=== PATIENT | male | born 1990 | race Caucasian/White ===

== ENCOUNTER 2017-02-07 01:40 | Emergency (ER) | payer BC ==
[~2017-02-07] VITALS: Ht 175.3 cm; Wt 90.9 kg
[2017-02-07 01:49] VITALS: BP 134/80; PULSE 75; RESP 18; O2SAT 97
[2017-02-07] MEDS ORDERED: MORPHINE SULFATE 4 MG/ML INJ IV PUSH ONE (02:30)
[2017-02-07] MEDS ORDERED: ONDANSETRON HCL 4 MG/2 ML VIAL IV PUSH ONE (02:30)
[2017-02-07] MEDS ORDERED: SODIUM CHLOR 0.9% 1000 ML INJ 1,000 ML IV ONE (02:30)
--- NOTE | 2017-02-07 02:31 | PD ---
HPI Chief Complaint: Musculoskeletal Complaint Time Seen by Provider: 01:50 Travel History International Travel<30 days: No Contact w/Intl Traveler<30days: No Traveled to known affect area: No History of Present Illness HPI The patient is a 26-year-old male who presents to the [facility] emergency department with a history of tripping over a curb prior to arrival. The patient reports that he tried to catch himself with this extended arms and fell onto his left extended arm feeling a pop in his left shoulder. The patient has deformity of the left shoulder. He reports that he had severe pain. He reports that he has full sensation in his hands. He denies having any weakness in his wrist. He denies having any pain in his elbow. He denies hitting his head or losing consciousness. He denies having any neck pain, numbness or tingling, or weakness in his other extremities. The patient is visiting from out of town for bike week. The patient denies any recent fevers, cough, congestion, neck pain, chest pain, shortness of breath, abdominal pain, vomiting , diarrhea, urinary symptoms, or neurologic symptoms. [facility] Past Medical History Narrative Medical The patient's past medical history is significant for bilateral shoulder injuries in the past status post rehabilitation. He denies having any prior shoulder surgery. He denies having any prior dislocation of his shoulders. Diminished Hearing: No Musculoskeletal: Yes (bilateral shoulder tears) Immunizations Current: Yes Influenza Vaccination: No Past Surgical History Narrative Surgical The patient's past surgical history is significant for benign tumors being removed from his neck. Surgical History: No Previous Surgery Social History Alcohol Use: Yes (2 beers this evening, otherwise occasionally) Tobacco Use: Yes (1 ppd) Substance Use: No Allergies-Medications (Allergen,Severity, Reaction): Coded Allergies: No Known Allergies (Unverified , 02/07/17) Reported Meds & Prescriptions Reported Meds & Active Scripts Active No Active Prescriptions or Reported Medications Review of Systems Except as stated in HPI: all other systems reviewed are Neg General / Constitutional: No: Fever Eyes: No: Visual changes HENT: No: Headaches Cardiovascular: No: Chest Pain or Discomfort Respiratory: No: Shortness of Breath Gastrointestinal: No: Abdominal Pain Genitourinary: No: Dysuria Musculoskeletal: Positive: Myalgias, Arthralgias, Limited ROM, Pain Skin: No Rash Neurologic: No: Weakness Psychiatric: No: Depression Endocrine: No: Polydipsia Hematologic/Lymphatic: No: Easy Bruising Physical Exam Narrative General: The patient is a well-developed well-nourished male in no acute distress, however the patient did receive morphine 10 mg IV prior to arrival by ambulance services. Head and Neck exam: Head is normocephalic atraumatic. Eyes: EOMI, pupils are equal round and reactive to light. Nose: Midline septum with pink mucous membranes Mouth: Dentition unremarkable. Moist mucus membranes. Posterior oropharynx is not erythematous. No tonsillar hypertrophy. Uvula midline. Airway patent. Neck: No palpable lymphadenopathy. No nuchal rigidity. No thyromegaly. Cardiovascular: Regular rate and rhythm without murmurs, gallops, or rubs. Lungs: Clear to auscultation bilaterally. No wheezes, rhonchi, or rales. Abdomen: Soft, without tenderness to palpation in all 4 quadrants of the abdomen. No guarding, rebound, or rigidity. Normal bowel sounds are audible. Extremities: No clubbing, cyanosis, or edema. 2+ pulses in all 4 extremities. On examination of the area of interest, the left shoulder the patient is noted to have loss of fullness in the glenoid fossa. The patient has loss of range of motion with abduction of his shoulder. He is maintaining his shoulder adducted , flexed at the elbow, lying over his abdomen. There is no crepitus. The patient has no pain on palpation of his left elbow. The patient has no pain on palpation of his wrist. The patient has full strength with flexion and extension at the wrist and full strength with abduction of his fingers. He has intact sensation over all finger pads. The patient has less than 3 second capillary refill. Back: No spinous process tenderness to palpation. No costovertebral angle tenderness to palpation. Neurologic Exam: Cranial nerves 2-12 were intact on exam. Strength is 5/5 in all 4 extremities. No sensory deficits noted. Skin Exam: No rash noted. Intact skin that is warm and dry. Data Data Last Documented VS Vital Signs Date Time Temp Pulse Resp B/P Pulse Ox O2 Delivery O2 Flow Rate FiO2 02/07/17 03:05 98 2.00 02/07/17 01:49 75 18 134/80 Room Air Orders Complete Blood Count With Diff (02/07/17 02:18) Basic Metabolic Panel (Bmp) (02/07/17 02:18) Iv Access Insert/Monitor (02/07/17 02:18) Ecg Monitoring (02/07/17 02:18) Oximetry (02/07/17 02:18) Morphine Inj (Morphine Inj) (02/07/17 02:30) Ondansetron Inj (Zofran Inj) (02/07/17 02:30) Sodium Chlor 0.9% 1000 Ml Inj (Ns 1000 M (02/07/17 02:30) Ice/Cold Pack (02/07/17 02:18) Shoulder, Limited(2vws) (02/07/17 02:18) Propofol 200 Mg/20 Ml Inj (Diprivan 200 (02/07/17 03:00) Splint Or Brace Apply/Monitor (02/07/17 03:02) Shoulder, Limited(2vws) (02/07/17 03:14) Labs Laboratory Tests Test 02/07/17 02:30 White Blood Count 12.7 TH/MM3 Red Blood Count 4.74 MIL/MM3 Hemoglobin 15.1 GM/DL Hematocrit 43.5 % Mean Corpuscular Volume 91.6 FL Mean Corpuscular Hemoglobin 31.8 PG Mean Corpuscular Hemoglobin 34.7 % Concent Red Cell Distribution Width 13.1 % Platelet Count 297 TH/MM3 Mean Platelet Volume 8.0 FL Neutrophils (%) (Auto) 52.3 % Lymphocytes (%) (Auto) 33.7 % Monocytes (%) (Auto) 7.8 % Eosinophils (%) (Auto) 5.4 % Basophils (%) (Auto) 0.8 % Neutrophils # (Auto) 6.6 TH/MM3 Lymphocytes # (Auto) 4.3 TH/MM3 Monocytes # (Auto) 1.0 TH/MM3 Eosinophils # (Auto) 0.7 TH/MM3 Basophils # (Auto) 0.1 TH/MM3 CBC Comment DIFF FINAL Differential Comment Sodium Level 142 MEQ/L Potassium Level 3.7 MEQ/L Chloride Level 104 MEQ/L Carbon Dioxide Level 28.3 MEQ/L Anion Gap 10 MEQ/L Blood Urea Nitrogen 10 MG/DL Creatinine 1.00 MG/DL Estimat Glomerular Filtration 90 ML/MIN Rate Random Glucose 105 MG/DL Calcium Level 8.1 MG/DL MDM Medical Decision Making Medical Screen Exam Complete: Yes Emergency Medical Condition: Yes Medical Record Reviewed: Yes Interpretation(s) Laboratory Tests Test 02/07/17 02:30 White Blood Count 12.7 TH/MM3 Red Blood Count 4.74 MIL/MM3 Hemoglobin 15.1 GM/DL Hematocrit 43.5 % Mean Corpuscular Volume 91.6 FL Mean Corpuscular Hemoglobin 31.8 PG Mean Corpuscular Hemoglobin 34.7 % Concent Red Cell Distribution Width 13.1 % Platelet Count 297 TH/MM3 Mean Platelet Volume 8.0 FL Neutrophils (%) (Auto) 52.3 % Lymphocytes (%) (Auto) 33.7 % Monocytes (%) (Auto) 7.8 % Eosinophils (%) (Auto) 5.4 % Basophils (%) (Auto) 0.8 % Neutrophils # (Auto) 6.6 TH/MM3 Lymphocytes # (Auto) 4.3 TH/MM3 Monocytes # (Auto) 1.0 TH/MM3 Eosinophils # (Auto) 0.7 TH/MM3 Basophils # (Auto) 0.1 TH/MM3 CBC Comment DIFF FINAL Differential Comment Sodium Level 142 MEQ/L Potassium Level 3.7 MEQ/L Chloride Level 104 MEQ/L Carbon Dioxide Level 28.3 MEQ/L Anion Gap 10 MEQ/L Blood Urea Nitrogen 10 MG/DL Creatinine 1.00 MG/DL Estimat Glomerular Filtration 90 ML/MIN Rate Random Glucose 105 MG/DL Calcium Level 8.1 MG/DL Last Impressions Shoulder X-Ray 02/07/17313 Signed Impressions: Service Date/Time: Tuesday, February 07, 2017 03:42 - CONCLUSION: Alignment within normal limits. Berto Larios MD Shoulder X-Ray 02/07/178 Signed Impressions: Service Date/Time: Tuesday, February 07, 2017 02:36 - CONCLUSION: Anterior inferior humeral head dislocation. Berto Larios MD Differential Diagnosis Left shoulder dislocation, versus left shoulder fracture Narrative Course During the course of the patients emergency department visit, the patients history, examination, and differential diagnosis were reviewed with the patient. The patient had IV access obtained and blood work sent for analysis. The patient was placed on a painter and decorator apprentice with oximetry and blood pressure monitoring. An x-ray of the left shoulder was ordered. The patient was provided morphine 4 mg IV for pain, Zofran 4 mg IV for nausea, normal saline 1 L IV fluid bolus was started. The patients laboratory studies were reviewed and remarkable for a CBC that shows a white count of 12.7, hemoglobin 15.1, platelets 297 with 5.4 eosinophils , BNP is remarkable for calcium 8.1 Radiology studies were reviewed and remarkable for a left shoulder x-ray that shows an anterior inferior humeral head dislocation. Postreduction x-ray reveals anatomic realignment after reduction of the dislocation. No evidence of fracture. The patient was instructed on rest, ice, elevation of the area of discomfort. The patient was instructed to maintain his shoulder and a sling and swath for the next 3 weeks and follow-up with an orthopedic physician for reexamination when he returns back home. The patient is resting comfortably and feels better, is alert and in no distress. The patients results and examination findings were discussed with the patient. The repeat examination is unremarkable and benign. The history, exam, diagnostic testing, and current condition do not suggest any significant pathology to warrant further testing, continued ED treatment, admission, or surgical evaluation at this point. The vital signs have been stable. The patient does not have uncontrollable pain, intractable vomiting, or other significant symptoms. The patient's condition is stable and appropriate for discharge. The patient will pursue further outpatient evaluation with a primary care physician or other designated or consulting physician as indicated in the discharge instructions. The patient expressed understanding and was agreeable with this plan. Diagnosis Primary Impression: Dislocation of left shoulder joint Qualified Code: S43.005A - Dislocation of left shoulder joint, initial encounter Referrals: Orthopedist 1 week Patient Instructions: General Instructions, Shoulder Dislocation (ED) Med/Other Pt SpecificInfo: Prescription(s) given Scripts Ibuprofen 600 Mg Fue486 Mg PO Q8HR PRN (PAIN) #12 TAB Ref 0 Prov:Jessica Hebert MD 02/07/17 Disposition: DISCHARGE HOME Condition: Stable Jessica Hebert MD Feb 07, 2017 02:31
[2017-02-07 02:45] LABS: AUTOMATED NEUTROPHIL # 6.6 TH/MM3 (1.8-7.7); BASOPHIL # 0.1 TH/MM3 (0-0.2); BASOPHIL % 0.8 % (0.0-2.0); EOSINOPHIL # 0.7 TH/MM3 (0-0.4); EOSINOPHIL % 5.4 % (0.0-4.0); HEMATOCRIT 43.5 % (39.0-51.0); HEMO FLAGS DIFF FINAL; LYMPH % 33.7 % (9.0-44.0); LYMPHOCYTE # 4.3 TH/MM3 (1.0-4.8); MEAN CELL VOLUME 91.6 FL (80.0-100.0); MEAN CORPUSCULAR HEMOGLOBIN 31.8 PG (27.0-34.0); MEAN CORPUSCULAR HGB CONC 34.7 % (32.0-36.0); MONO % 7.8 % (0.0-8.0); NEUT % 52.3 % (16.0-70.0); PLATELET COUNT 297 TH/MM3 (150-450); RED BLOOD COUNT 4.74 MIL/MM3 (4.50-5.90); RED CELL DISTRIBUTION WIDTH 13.1 % (11.6-17.2); WHITE BLOOD COUNT 12.7 TH/MM3 (4.0-11.0)
[2017-02-07] MEDS ORDERED: PROPOFOL 200 MG/20 ML AMP IV ONE (03:00)
--- NOTE | 2017-02-07 03:01 | RADRPT ---
EXAM DATE/TIME: 02/07/2017 02:36 [facility] COMPARISON: No previous studies available for comparison. INDICATIONS : Left shoulder pain post trip and fall. MEDICAL HISTORY : None. SURGICAL HISTORY : None. ENCOUNTER: Initial ACUITY: 1 day PAIN SCORE: 10/10 LOCATION: Left upper extremity FINDINGS: 2 views left shoulder. Anterior-inferior dislocation of the humeral head relative to the glenoid. No gross evidence of fracture. CONCLUSION: Anterior inferior humeral head dislocation. Berto Larios MD on February 07, 2017 at 2:59 Board Certified Radiologist. This report was verified electronically.
[2017-02-07 03:05] VITALS: O2SAT 98
[2017-02-07 03:06] LABS: BICARBONATE 28.3 MEQ/L (21.0-32.0); POTASSIUM 3.7 MEQ/L (3.5-5.1)
--- NOTE | 2017-02-07 04:06 | RADRPT ---
EXAM DATE/TIME: 02/07/2017 03:42 [facility] COMPARISON: SHOULDER LEFT LTD (2VWS), February 07, 2017, 2:36. INDICATIONS : Post reduction. MEDICAL HISTORY : None. SURGICAL HISTORY : None. ENCOUNTER: Subsequent ACUITY: 1 day PAIN SCORE: 8/10 LOCATION: Left upper extremity FINDINGS: 2 views left shoulder. Glenohumeral joint alignment within normal limits. No gross evidence of fractu re. CONCLUSION: Alignment within normal limits. Berto Larios MD on February 07, 2017 at 4:05 Board Certified Radiologist. This report was verified electronically.
[2017-02-07] MEDS ORDERED: IBUP-232 PO (04:24)
== END 2017-02-07 05:03 | disposition home or self-care (01) ==
LOC: NEPC 01:40
DX: S43.005A Unspecified dislocation of left shoulder joint, initial encounter (principal); F17.200 Nicotine dependence, unspecified, uncomplicated; Z87.39 Personal history of other diseases of the musculoskeletal system and connective tissue; W01.0XXA Fall on same level from slipping, tripping and stumbling without subsequent striking against object, initial encounter
CPT/HCPCS: 23650; 29240; 73030; 80048; 85025; 96374; 96375; 99152; 99284; J2270; J2405; J7030